=== PATIENT | male | born 1950 | race Caucasian/White ===

== ENCOUNTER → 2017-05-15 | Outpatient (REF) | payer MEDICARE, BC, OTHER ==
[~2017-05-15] MED LIST: ALPR0.25 PO; FLOM5CAP PO; PRAV40TA2 PO
== END ==
LOC: M LAB REF 14:56
PROVIDERS: ATTEND Otolaryngology
DX: C44.42 Squamous cell carcinoma of skin of scalp and neck (principal)

== ENCOUNTER 2017-06-08 10:24 | Day surgery (SDC) | payer MEDICARE, BC, OTHER ==
[~2017-06-08] VITALS: Ht 170.2 cm; Wt 67.1 kg
[2017-06-08] MEDS ORDERED: METHYLENE BLUE 0.5% (5MG/ML) 10 ML AMP (PROVAYBLUE)(Q9968 PER 1MG) As Ordered ONE (13:09)
[2017-06-08] MEDS ORDERED: BACITRACIN OINT 30GM As Ordered ONE (13:10)
[2017-06-08] MEDS ORDERED: EPINEPHrine 1MG/ML INJ 30ML MD-VIAL As Ordered ONE (13:10)
[2017-06-08] MEDS ORDERED: LIDOCAINE W/EPINEPHRINE 1% 20ML VIAL As Ordered ONE (13:10)
[2017-06-08] MEDS ORDERED: LIDOCAINE 2% INJ 100 MG/5 ML SDV (FOR ANES.) As Ordered ONE (13:24)
[2017-06-08] MEDS ORDERED: MIDAZOLAM INJ 2 MG/2 ML VIAL (J2250) As Ordered ONE (13:24)
[2017-06-08] MEDS ORDERED: PROPOFOL 200 MG/20 ML VIAL As Ordered ONE (13:24)
[2017-06-08] MEDS ORDERED: fentaNYL 100 MCG/2 ML INJECTION (J3010) As Ordered ONE ×2 (13:24→15:07)
[2017-06-08] MEDS ORDERED: SEVOFLURANE INHAL SOLN 250 ML BTL As Ordered ONE (13:24)
[2017-06-08] MEDS ORDERED: ONDANSETRON 4MG/2ML VIAL (J2405) As Ordered ONE (13:41)
[2017-06-08] MEDS ORDERED: dexameTHASONE 4 MG/ML 1ML VIAL (J1100) As Ordered ONE (13:42)
[2017-06-08] MEDS: fentaNYL 100 MCG/2 ML INJECTION (J3010) IV PRN ×4 (15:09→15:23)
[2017-06-08] MEDS ORDERED: ACETAMINOPH W/CODEINE #3 TAB UD As Ordered ONE (15:12)
[2017-06-08] MEDS ORDERED: ACETAMINOPH W/CODEINE #3 TAB UD PO PRN (15:15)
[2017-06-08] MEDS ORDERED: ONDANSETRON 4MG/2ML VIAL (J2405) IV PRN (15:15)
[2017-06-08] MEDS ORDERED: LR 1,000 ML IV SCH ×2 (15:15)
[2017-06-08 16:20] VITALS: BP 146/78
--- NOTE | 2017-06-08 19:56 | RO ---
DATE OF PROCEDURE: 06/08/2017 PREPROCEDURE DIAGNOSIS: Skin cancer on the scalp. POSTPROCEDURE DIAGNOSIS: Skin cancer on the scalp. OPERATIVE PROCEDURE: Excision of skin on the scalp with rhomboid flap reconstruction. SURGEON: Raimundo Cherry MD VINYL INSTALLER: ANESTHESIA: DESCRIPTION OF PROCEDURE: I excised the edge of the previous resection so the resection total was 1.5 cm diameter. Bleeding was controlled with bipolar cautery. I infiltrated with Lidocaine with epinephrine. I undermined the area. I closed the left side of the wound with #3-0 Vicryl and #3-0 Prolene. There was a defect posterolateral on the right side so I performed a rhomboid flap on that right side by making an incision superiorly and then laterally. Bleeding was controlled with electrocautery. The flap was rotated into place and sutured in with #3-0 Vicryl and #3-0 Prolene. Approximately 20 mL estimated blood loss. The patient tolerated the procedure well. The results of the frozen section were all clear of cancer. The patient was transferred to the recovery room in excellent condition.
== END 2017-06-08 16:33 | disposition home or self-care (01) ==
LOC: M SDC 10:24
PROVIDERS: ATTEND Otolaryngology
DX: C44.399 Other specified malignant neoplasm of skin of other parts of face (principal); E78.00 Pure hypercholesterolemia, unspecified; N40.0 Benign prostatic hyperplasia without lower urinary tract symptoms; Z79.899 Other long term (current) drug therapy; Z85.6 Personal history of leukemia; Z92.21 Personal history of antineoplastic chemotherapy
CPT/HCPCS: 14020; 88305; 88331; 88332; J1100; J2250; J2405; J3010

== ENCOUNTER → 2018-10-23 | Outpatient (REF) | payer MEDICARE, OTHER ==
[~2018-10-23] MED LIST changes: +FLOM0.4C39 PO; -FLOM5CAP PO
== END ==
LOC: M LAB REF 12:46
PROVIDERS: ATTEND Otolaryngology
DX: C44.399 Other specified malignant neoplasm of skin of other parts of face (principal)

== ENCOUNTER 2018-11-07 06:38 | Day surgery (SDC) | payer MEDICARE, BC, OTHER ==
[~2018-11-07] VITALS: Ht 167.6 cm; Wt 63.5 kg
[~2018-11-07 06:38] MED LIST changes: +LR 1,000 ML IV SCH
[2018-11-07] MEDS ORDERED: fentaNYL 100 MCG/2 ML INJECTION (J3010) As Ordered ONE (06:52)
[2018-11-07] MEDS ORDERED: GLYCOPYRROLATE INJ 0.2 MG/ML 2 ML VIAL As Ordered ONE (06:52)
[2018-11-07] MEDS ORDERED: MIDAZOLAM INJ 2 MG/2 ML VIAL (J2250) As Ordered ONE (06:52)
[2018-11-07] MEDS ORDERED: NEOSTIGMINE 10 MG/10 ML VIAL (J2710) As Ordered ONE (06:52)
[2018-11-07] MEDS ORDERED: LIDOCAINE 2% INJ 100 MG/5 ML SDV (FOR ANES.) As Ordered ONE (06:52)
[2018-11-07] MEDS ORDERED: dexameTHASONE 4 MG/ML 1ML VIAL (J1100) As Ordered ONE (06:52)
[2018-11-07] MEDS ORDERED: ROCURONIUM BROMIDE 50 MG/5 ML VIAL As Ordered ONE (06:52)
[2018-11-07] MEDS ORDERED: ONDANSETRON 4MG/2ML VIAL (J2405) As Ordered ONE (06:52)
[2018-11-07] MEDS ORDERED: PROPOFOL 200 MG/20 ML VIAL As Ordered ONE (06:52)
[2018-11-07] MEDS ORDERED: LIDOCAINE 1% SDV INJ 30 ML VIAL As Ordered ONE (07:58)
[2018-11-07] MEDS ORDERED: NEOSPORIN TOP OINT 15GM As Ordered ONE (07:59)
[2018-11-07] MEDS ORDERED: ePHEDrine SULFATE 25 MG/5 ML(5MG/ML) SYRINGE As Ordered ONE (08:55)
[2018-11-07] MEDS ORDERED: ACETAMINOPH W/CODEINE #3 TAB UD PO PRN (10:15)
[2018-11-07] MEDS ORDERED: fentaNYL 100 MCG/2 ML INJECTION (J3010) IV PRN (10:15)
[2018-11-07] MEDS ORDERED: LR 1,000 ML IV SCH ×2 (10:15)
[2018-11-07] MEDS ORDERED: PERCOCET 5MG/325MG TAB PO PRN (10:15)
[2018-11-07] MEDS ORDERED: ONDANSETRON 4MG/2ML VIAL (J2405) IV PRN (10:15)
[2018-11-07 10:50] VITALS: BP 125/77
--- NOTE | 2018-11-07 17:37 | ECGEPIP ---
Stationary ECG Study [facility] Test Date: 2018-11-07 Pat Name: NATE SAN Department: Room: - Gender: M Supervisor [employer]: : 1950 Requested By: Balaji Landon Order Number: [id number] Reading MD: Cruz Harrison Measurements Intervals [place] Rate: 64 P: 72 [place]: 170 QRS: 75 QRSD: 102 T: 49 QT: 397 QTc: 410 Interpretive Statements Normal sinus rhythm Prominent precordial voltage but criteria for LVH are not met Comparison tracing is not available Electronically Signed On 11-07-2018 17:37:33 EDT by Cruz Harrison
--- NOTE | 2018-11-08 07:22 | RO ---
DATE OF PROCEDURE: 11/07/2018 PREPROCEDURE DIAGNOSIS: Carcinoma skin forehead and scalp. POSTPROCEDURE DIAGNOSIS: Carcinoma skin forehead and scalp. PROCEDURE: Excision of carcinoma and reconstruction of the flap. SURGEON: Dr. Raimundo Cherry. SAS ADMINISTRATOR: ANESTHESIA: General. FINDINGS: There was a tumor. The size of the excision was 2 x 2.5 cm. I did a Rhomboid flap to reconstruct. DESCRIPTION OF PROCEDURE: Under general anesthesia the patient intubated. The patient was prepped and draped in the usual manner. I cleaned the area with Betadine. I infiltrated with lidocaine with epinephrine. I marked out the site and excised it. That was sent for frozen sections. Frozen sections were negative for tumor. I then designed an anterior inferior Rhomboid flap. I made the incisions. Bleeding was controlled with a cautery. I then rotated the flap into place. I closed the wound with interrupted #4-0 Vicryl, #4-0 Prolene and then #5-0 nylon. The patient tolerated the procedure well and was extubated and transferred to the recovery room in excellent condition. Approximately 50 mL of estimated blood loss.
== END 2018-11-07 12:00 | disposition home or self-care (01) ==
LOC: M SDC 06:38
PROVIDERS: ATTEND Otolaryngology
DX: C44.40 Unspecified malignant neoplasm of skin of scalp and neck (principal); C44.309 Unspecified malignant neoplasm of skin of other parts of face; E78.5 Hyperlipidemia, unspecified; Z79.899 Other long term (current) drug therapy; Z92.3 Personal history of irradiation; Z85.6 Personal history of leukemia
CPT/HCPCS: 14020; 88305; 88331; 93005; J1100; J2250; J2405; J2710; J3010

== ENCOUNTER → 2021-09-15 | Outpatient (REF) | payer MEDICARE, BC, OTHER ==
[~2021-09-15] MED LIST changes: -LR 1,000 ML IV SCH
== END ==
LOC: M LAB REF 17:36
PROVIDERS: ATTEND Otolaryngology
DX: C44.42 Squamous cell carcinoma of skin of scalp and neck (principal)

== ENCOUNTER 2022-04-14 07:53 | Outpatient (CLI) | payer MEDICARE, BC, OTHER ==
[~2022-04-14] VITALS: Ht 175.3 cm; Wt 61.0 kg
[2022-04-14] MEDS ORDERED: ACETAMINOPHEN TAB 650MG DOSE (2X325MG) PO ONE (08:00)
[2022-04-14] MEDS ORDERED: IMMUNE GLOBULIN 10% 40 GM in IV 1 EA IV ONE (08:00)
[2022-04-14] MEDS ORDERED: IMMUNE GLOBULIN 10% 20 GM in IV 1 EA IV ONE (08:00)
[2022-04-14 08:13] VITALS: BP 119/67
[2022-04-14] MEDS ORDERED: dexameTHASONE 20MG/5ML VIAL (J1100 PER 1MG) IV ONE (08:30)
[2022-04-14] MEDS ORDERED: diphenhydrAMINE 50MG/ML VIAL (J1200) IV ONE (08:30)
[2022-04-14 10:00] VITALS: BP 122/72
[2022-04-14 11:00] VITALS: BP 121/76
[2022-04-14 12:00] VITALS: BP 132/67
[2022-04-14 13:00] VITALS: BP 65/67
[2022-04-14 13:35] VITALS: BP 116/62
== END 2022-04-14 13:35 | disposition home or self-care (01) ==
LOC: M INFU 07:53
PROVIDERS: ATTEND Internal Medicine
DX: C91.10 Chronic lymphocytic leukemia of B-cell type not having achieved remission (principal); D80.1 Nonfamilial hypogammaglobulinemia
CPT/HCPCS: 96365; 96366; J1100; J1200; J1459

== ENCOUNTER 2022-06-09 07:50 | Outpatient (CLI) | payer MEDICARE, BC, OTHER ==
[2022-06-09 07:50] VITALS: BP 128/76
[2022-06-09] MEDS ORDERED: diphenhydrAMINE 50MG/ML VIAL (J1200) IV ONE (08:00)
[2022-06-09] MEDS ORDERED: dexameTHASONE 20MG/5ML VIAL (J1100 PER 1MG) IV ONE (08:00)
[2022-06-09] MEDS ORDERED: IMMUNE GLOBULIN 10% 40 GM in IV 1 EA IV ONE (08:00)
[2022-06-09] MEDS ORDERED: ACETAMINOPHEN TAB 650MG DOSE (2X325MG) PO ONE (08:00)
[2022-06-09] MEDS ORDERED: IMMUNE GLOBULIN 10% 20 GM in IV 1 EA IV ONE (08:00)
[2022-06-09 09:00] VITALS: BP 124/70
[2022-06-09 09:30] VITALS: BP 119/68
[2022-06-09 10:00] VITALS: BP 120/76
[2022-06-09 11:00] VITALS: BP 119/80
[2022-06-09 13:54] VITALS: BP 118/66
== END 2022-06-09 13:55 | disposition home or self-care (01) ==
LOC: M INFU 07:50
PROVIDERS: ATTEND Internal Medicine
DX: C91.10 Chronic lymphocytic leukemia of B-cell type not having achieved remission (principal); D80.1 Nonfamilial hypogammaglobulinemia
CPT/HCPCS: 96365; 96366; 96375; J1100; J1200; J1459

== ENCOUNTER 2022-08-04 07:56 | Outpatient (CLI) | payer MEDICARE, BC, OTHER ==
[2022-08-04] VITALS (7 sets, daily range): BP systolic 103–130; BP diastolic 68–77
[~2022-08-04] VITALS: Ht 170.2 cm; Wt 61.0 kg
[2022-08-04] MEDS ORDERED: IMMUNE GLOBULIN 10% 20 GM in IV 1 EA IV ONE (08:00)
[2022-08-04] MEDS ORDERED: ACETAMINOPHEN TAB 650MG DOSE (2X325MG) PO ONE (08:00)
[2022-08-04] MEDS ORDERED: IMMUNE GLOBULIN 10% 40 GM in IV 1 EA IV ONE (08:00)
[2022-08-04] MEDS ORDERED: diphenhydrAMINE 50MG/ML VIAL IV ONE (08:00)
== END 2022-08-04 13:00 | disposition home or self-care (01) ==
LOC: M INFU 07:56
PROVIDERS: ATTEND Internal Medicine
DX: C91.10 Chronic lymphocytic leukemia of B-cell type not having achieved remission (principal); D80.1 Nonfamilial hypogammaglobulinemia
CPT/HCPCS: 96365; 96366; 96375; J1100; J1200; J1459

== ENCOUNTER → 2022-12-27 | Outpatient (CLI) | payer MEDICARE, BC, OTHER ==
[~2022-12-27] MED LIST changes: +PROHANCE 279.3MG/ML 15ML VIAL As Ordered ONE
== END ==
LOC: M RAD 16:19
PROVIDERS: ATTEND Internal Medicine Gastroenterology
DX: R17 Unspecified jaundice (principal)
CPT/HCPCS: 74183; A9576

== ENCOUNTER → 2025-02-13 | Outpatient (REF) | payer MEDICARE, BC, OTHER ==
[~2025-02-13] MED LIST changes: +FINA5TAB2 PO; -FLOM0.4C39 PO; +NYST-38 PO; -PRAV40TA2 PO; +PRAV40TA85 PO; -PROHANCE 279.3MG/ML 15ML VIAL As Ordered ONE; +TAMS-18 PO
== END ==
LOC: M SFHCDERM 08:42
PROVIDERS: ATTEND Physician Assistant
DX: D48.5 Neoplasm of uncertain behavior of skin (principal)